=== PATIENT | female | born 1940 | race Caucasian/White ===

== ENCOUNTER 2019-03-09 15:55 | Inpatient (IN) ==
[2019-03-09] MEDS ORDERED: ZOFRAN IV ONE (16:32)
[2019-03-09] MEDS ORDERED: MORPHINE IV ONE (16:32)
[2019-03-09] MEDS ORDERED: NS 1,000 ML IV ONE ×3 (16:32→19:11)
[2019-03-09] MEDS ORDERED: MAXIPIME 2 GM in NS 100 ML IV ONE (16:33)
[2019-03-09 16:52] LABS: BASO# 0.07 X1000 (0.0-0.2); BASO% 0.3 % (0.0-0.8); EOS# 0.08 X1000 (0.0-0.7); EOS% 0.4 % (0.0-10.0); HEMATOCRIT 43.8 % (37.0-47.0); HEMOGLOBIN 14.3 g/dL (12.0-16.0); IMM GRAN# 0.19 X1000 (0.0-0.04); IMM GRAN% 0.9 % (0.0-0.5); LYMPH# 1.96 X1000 (1.2-3.4); LYMPH% 9.2 % (20.5-51.1); MCHC 32.6 g/dL (33-37); MCV 85.9 FL (81-99); MONO# 2.05 X1000 (0.11-0.59); MONO% 9.7 % (1.7-9.3); MPV 9.7 FL (7.4-10.4); NEUT# 16.89 X1000 (1.4-6.5); NEUT% 79.5 % (42.2-75.2); PLT 361 X1000 (130-400); RDW 14.4 % (11.5-14.5); WBC 21.24 X1000 (4.8-10.8)
[2019-03-09 16:59] LABS: ACETONE SERUM NEGATIVE (NEGATIVE)
[2019-03-09 17:03] LABS: LIPASE 9 U/L (13-60)
[2019-03-09 17:09] LABS: ALBUMIN 4.2 g/dL (3.5-5.0); CREATININE 1.3 mg/dL (0.5-0.9); MAGNESIUM 1.9 mg/dL (1.5-2.7); POTASSIUM 4.2 mmol/L (3.5-5.1); TOTAL BILIRUBIN 1.4 mg/dL (0.20-1.00); TOTAL PROTEIN 7.5 g/dL (6.3-8.3)
[2019-03-09] MEDS ORDERED: HUMULIN R IV ONE (17:14)
[2019-03-09 17:18] LABS: INR 1.06; PROTIME 14.3 Seconds (11.0-16.0)
[2019-03-09 17:19] LABS: PTT 26.1 Seconds (22.3-41.8)
[2019-03-09] MEDS ORDERED: NS 500 ML IV ONE (17:30)
--- NOTE | 2019-03-09 17:34 | Diag Imaging Result Doc PS360 ---
EXAM: CHEST-1 VIEW INDICATION: low blood pressure, confused TECHNIQUE: One view COMPARISON: 04/04/2018 FINDINGS: There is suggestion of mild bibasilar atelectasis. The lungs are grossly clear, otherwise. There is no discrete pleural fluid collection or pneumothorax. The cardiomediastinal silhouette and central vasculature are grossly unremarkable. IMPRESSION: Likely mild bibasilar atelectasis. No definite acute chest pathology, otherwise. Electronically signed by Davis Sanches 03/09/2019 5:31 PM
[2019-03-09 17:45] LABS: BILIRUBIN URINE NEGATIVE (NEGATIVE); BLOOD URINE 2+ (NEGATIVE); CLARITY SL. CLOUDY (CLEAR); COLOR YELLOW; KETONE URINE NEGATIVE (NEGATIVE); LEUKOCYTES URINE 2+ (NEGATIVE); NITRITE URINE NEGATIVE (NEGATIVE); PROTEIN URINE 2+(100 mg/dL) mg/dL (NEGATIVE); UROBILINOGEN URINE 4 mg/dL
[2019-03-09 17:52] LABS: URINE RBC TNTC /HPF (<10); URINE WBC TNTC /HPF (<10)
[2019-03-09 17:53] LABS: URINE BACTERIA 4+ /HFP; URINE EPITHELIAL CELLS <10 /HPF (<10); URINE SOURCE CATH
--- NOTE | 2019-03-09 17:55 | Diag Imaging Result Doc PS360 ---
EXAM: CT ABDOMEN/PELVIS W/O CONTRAST INDICATION: abd pain, sepsis, contrast allergy TECHNIQUE: This exam was performed using automated exposure control, adjustment of mA or kV according to patient size, and/or use of iterative reconstruction technique. COMPARISON: None. FINDINGS: There is minimal subsegmental atelectasis at the lung bases. There has been a prior cholecystectomy. The liver, spleen, pancreas, and adrenal glands are essentially unremarkable as imaged with unenhanced CT. There is a large cyst at the upper pole of the left kidney measuring up to 9.4 x 7.3 cm axially. There are a couple of small cysts associated with the right kidney. There is extensive diverticulosis coli. There is mild inflammatory fat stranding that is associated with the distal ascending colon and also the lower pole of the right kidney. The exact source of this stranding is unclear. There are several right-sided diverticula in the region but there is no obvious focal colonic wall thickening. Nonetheless, mild diverticulitis should be considered. It could also be related to pyelonephritis. Please correlate clinically. There is no evidence of bowel obstruction. The remainder of the GI tract is essentially unremarkable. No focal bowel wall thickening is identified. The urinary bladder is unremarkable. There has been a prior hysterectomy. No free abdominal gas or free fluid is appreciated. There is no evidence of acute osseous abnormality. IMPRESSION: 1.Diverticulosis coli and mild fat stranding that is closely associated with a segment of the ascending colon as well as the lower pole of the right kidney. The exact source of this stranding is unclear. Consider diverticulitis or perhaps pyelonephritis. Note that no discrete colonic wall thickening can be identified. 2.Other incidental/nonacute findings detailed above. Electronically signed by Davis Sanches 03/09/2019 5:52 PM
[2019-03-09] MEDS ORDERED: FLAGYL 500 MG/NS 500 MG/100 ML IVPB IV ONE (17:57)
--- NOTE | 2019-03-09 18:02 | PROVIDER DOCUMENTATION ---
This chart was entered by Tata Werner Scribe, acting as scribe for Butch Johnson MD. HPI-General Adult - General Chief Complaint: B/P Problems Stated Complaint: LOW BP Time Seen by Provider: 03/09/19 16:10 Source: family () Allergies/Adverse Reactions: Patient Allergies Allergy/AdvReac Type Severity Reaction Status Date / Time Iodinated Contrast Media Allergy HIVES Verified 03/09/19 17:02 [IV Dye] amoxicillin [From Augmentin] AdvReac HIVES Verified 04/04/18 20:07 bacitracin AdvReac RASH Verified 03/09/19 16:48 clavulanic acid AdvReac HIVES Verified 04/04/18 20:07 [From Augmentin] iron AdvReac Unknown Verified 03/09/19 16:48 Sulfa (Sulfonamide AdvReac HIVES Verified 04/04/18 20:06 Antibiotics) Tetanus Vaccines and Toxoid AdvReac Unknown Verified 03/09/19 16:48 Home Medications: Home Medication List Medication Instructions Recorded Confirmed Last Taken Type Alprazolam [Xanax] 1 tab PO DAILY PRN 03/09/19 03/09/19 Unknown History Ascorbic Acid [Vitamin C] 1 tab PO DAILY 03/09/19 03/09/19 Unknown History Atorvastatin Calcium [Lipitor] 1 tab PO DAILY 03/09/19 03/09/19 Unknown History Cetirizine HCl [Zyrtec] 1 tab PO DAILY 03/09/19 03/09/19 Unknown History Clonidine [Catapres] 1 tab PO BID 03/09/19 03/09/19 Unknown History Cyclobenzaprine [Flexeril] 1 tab PO BID 03/09/19 03/09/19 Unknown History Donepezil [Aricept] 1 tab PO DAILY 03/09/19 03/09/19 Unknown History Duloxetine [Cymbalta] 1 tab PO BID 03/09/19 03/09/19 Unknown History Esomeprazole [Nexium] 1 tab PO BID 03/09/19 03/09/19 Unknown History Hydrochlorothiazide 1 tab PO DAILY 03/09/19 03/09/19 Unknown History Ibuprofen [Motrin] 1 tab PO Q6-8H PRN PRN 03/09/19 03/09/19 Unknown History Insulin Glargine,Hum.rec.anlog 10 units SQ HS 03/09/19 03/09/19 Unknown History [Lantus Solostar] Levothyroxine [Synthroid] 1 tab PO DAILY 03/09/19 03/09/19 Unknown History Polyethylene Glycol 3350 [Miralax] 1 packet PO DAILY 03/09/19 03/09/19 Unknown History Potassium Chloride 1 tab PO TID 03/09/19 03/09/19 Unknown History Vitamin E 1 tab PO DAILY 03/09/19 03/09/19 Unknown History - History of Present Illness -Gen Adult Nature of Presenting Problems: Patient is a 78 year old female who presents with for multiple complaints. states patient has symptoms of loss of appetite, fatigue, weight loss, increase in confusion and incontinence of urine and bowel. History of dementia. Location of Pain/Injury: reports: none Quality of Pain: reports: none Severity: reports: mild Onset/Duration: reports: unsure Timing: reports: still present Associated Symptoms: reports: fatigue, genitourinary problems (incontinence), loss of appetite, other (weight loss, increase in confusion, and bowel incontinence) Similar Symptoms Previously?: Yes Recently seen or treated by another doctor?: Yes Review of Systems - Adult - REVIEW OF SYSTEMS - ADULT ROS:: ROS per family () Constitutional: reports: see HPI, fatique, weight loss. denies: chills, fever Eyes: reports: no symptoms reported Ears, Nose, Mouth & Throat: reports: no symptoms reported Cardiovascular: reports: no symptoms reported Respiratory: reports: no symptoms reported Gastrointestinal: reports: see HPI, poor appetite, other (bowel incontinence). denies: diarrhea, nausea, vomiting Genitourinary: reports: see HPI, incontinence. denies: dysuria, hematuria Musculoskeletal: reports: no symptoms reported Integumentary: reports: no symptoms reported Neurological: reports: see HPI, other (increase in confusion). denies: dizziness/vertigo, headache/migraines Psychiatric: reports: no symptoms reported Endocrine: reports: no symptoms reported Hematologic/Lymphatic: reports: no symptoms reported Allergic/Immunologic: reports: no symptoms reported All Other Systems: Reviewed and Negative Past History - Adult - PAST MEDICAL HISTORY-ADULT Review of Records: reports: Old Records Reviewed, Social history reviewed & non- contributory. Major Childhood Illnesses: reports: denies history Cardiovascular: reports: HTN Respiratory: reports: denies history Gastrointestinal: reports: denies history Obstetrical/Gynecological: reports: denies history Genitourinary: reports: denies history Musculoskeletal: reports: denies history Neurological: reports: dementia Psychiatric: reports: denies history Endocrine/Immune: reports: Diabetes Other Conditions: reports: denies history - PRIOR SURGERIES/PROCEDURES Surgical/Procedure History: reports: cholecystectomy, hysterectomy, tonsillectomy - IMMUNIZATION STATUS Childhood Immunizations: See Nurse Assessment Flu Vaccine: See Nurse Assessment - FAMILY HISTORY Family History: reviewed, not pertinent - SOCIAL HISTORY Smoking: denies Substance Use: denies Physical Exam-General - PHYSICAL EXAM-ADULT Initial Vital Signs Reviewed: Yes - CONSTITUTIONAL General Appearance: alert, no apparent distress, other (confused). negative: lethargic - HEAD, EARS, NOSE, MOUTH & THROAT HENMT: normocephalic/atraumatic, other (dry mucous membranes). negative: angioedema - RESPIRATORY Respiratory: chest non-tender, lungs clear, normal breath sounds, increased rate . negative: crackles, rales - CARDIOVASCULAR Cardiovascular: normal peripheral pulses, tachycardia. negative: systolic murmur - GASTROINTESTINAL (ABDOMEN) Abdominal Exam: normal bowel sounds, soft, tenderness (diffuse). negative: guarding, rebound - MUSCULOSKELETAL Extremity: non-tender, normal inspection. negative: deformity, erythema - SKIN Integumentary: diaphoresis, pallor, other (decreased skin turgor). negative: ecchymosis, jaundice - NEUROLOGIC Neurologic: other (confused). negative: aphasia, facial droop - PSYCHIATRIC Psych/Mental Status: other (confused). negative: anxious, paranoid Progress - PLAN OF CARE/RESULTS Progress/Plan/Lab Results: Vital Signs - 8 hr 03/09/19 15:56 03/09/19 16:07 Temperature 97 F L Pulse Rate 117 H Respiratory Rate 18 Blood Pressure 91/62 O2 Sat by Pulse Oximetry 94 L 96 Orders Category Date Time Status CBC WITH DIFF [HEME] Stat Lab 03/09/19 16:06 Ordered COMPREHENSIVE METABOLIC PANEL [CHEM] Stat Lab 03/09/19 16:[address] W/POSS RFLX CULT [URINALYSIS] Stat Lab 03/09/19 16:06 Uncollected Result Diagrams: 03/09/19 16:33 03/09/19 16:33 - REASSESSMENT Reassessment #1 Time Reassessed: 18:12 Status: improving (Given 30ml/kg NS, IV maxipime and flagyl for GI cause of sepsis with PCN allergy, much improved) - EKG 1 Time of EKG reading by physician:: 16:35 EKG Read and Signed by:: Butch Johnson EKG Interpretation (*Must complete 3 of following elements*): Abnormal Rate: 97 Rhythm: normal sinus rhythm [place]: normal [place] Interval: normal Comments: nonspecific ST abnormality. - XRAY 1 XRAY Study: Chest Impression: Abnormal, See EMR Report (Signed EXAM: CHEST-1 VIEW INDICATION: low blood pressure, confused TECHNIQUE: One view COMPARISON: 04/04/2018 FINDINGS: There is suggestion of mild bibasilar atelectasis. The l ungs are grossly clear, otherwise. There is no discrete pleural fluid collection or pneumothorax. The cardiomediastinal silhouette and central vasculature are grossly unremarkable. IMPRESSION: Likely mild bibasilar atelectasis. No definite acute chest pathology, otherwise. Electronically signed by Davis Sanches 03/09/2019 5:31 PM 03/09/19 1731 Interpreting Physician: Davis Sanches MD Dictated Date/Time: 03/09/19 1730 cc: Butch Johnson MD; Waldemar Rivers MD) - CT/MRI 1 CT Study: Abdomen Impression: Abnormal, See EMR Report (EXAM: CT ABDOMEN/PELVIS W/O CONTRAST INDICATION: abd pain, sepsis, contrast allergy TECHNIQUE: This exam was performed using automated exposure control, adjustment of mA or kV according to patient size, and/or use of iterative reconstruction technique. COMPARISON: None. FINDINGS: There is minimal subsegmental atelectasis at the lung bases. There has been a prior cholecystectomy. The liver, spleen, pancreas, and adrenal glands are essentially unremarkable as imaged with unenhanced CT. There is a large cyst at the upper pole of the left kidney measuring up to 9.4 x 7.3 cm axially. There are a couple of small cysts associated with the right kidney. There is extensive diverticulosis coli. There is mild inflammatory fat stranding that is associated with the distal ascending colon and also the lower pole of the right kidney. The exact source of this stranding is unclear. There are several right-sided diverticula in the region but there is no obvious focal col onic wall thickening. Nonetheless, mild diverticulitis should be considered. It could also be related to pyelonephritis. Please correlate clinically. There is no evidence of bowel obstruction. The remainder of the GI tract is essentially unremarkable. No focal bowel wall thickening is identified. The urinary bladder is unremarkable. There has been a prior hysterectomy. No free abdominal gas or free fluid is appreciated. There is no evidence of acute osseous abnormality. IMPRESSION: 1.Diverticulosis coli and mild fat stranding that is closely associated with a segment of the ascending colon as well as the lower pole of the right kidney. The exact source of this stranding is unclear. Consider diverticulitis or perhaps pyelonephritis. Note that no discrete colonic wall thickening can be identified. 2.Other incidental/nonacute findings detailed above. Electronically signed by Davis Sanches 03/09/2019 5:52 PM 03/09/19 1752 Interpreting Physician: Davis Sanches MD Dictated Date/Time: 03/09/19 1746 cc: Butch Johnson MD; Waldemar Rivers MD) - CONSULTS/PCP/HOSPITALIST Notification #1 *Consult/PCP/Hospitalist*: freedom Martinez paged at [phone] Time Discussed: 18:12 Reason/Comments: will admit to ICU Consult Disposition: Admit Departure - Departure Date of Disposition Decision: 03/09/19 Time of Disposition Decision: 18:00 DIAGNOSIS: Diverticulitis large intestine w/o perforation or abscess w/o bleeding Sepsis Qualifiers: Sepsis type: sepsis due to unspecified organism Sepsis acute organ dysfunction status: with acute organ dysfunction Severe sepsis acute organ dysfunction type: unspecified Severe sepsis shock status: without septic shock Qualified Code(s): A41.9 - Sepsis, unspecified organism; R65.20 - Severe sepsis without septic shock UTI (urinary tract infection) Qualifiers: Urinary tract infection type: acute pyelonephritis Qualified Code(s): N10 - Acute pyelonephritis Disposition: ADMITTED INPATIENT 09 Certified Medical Emergency: Emergent Condition: Stable Referrals and Follow-Ups: Waldemar Rivers MD [Primary Care Provider] - - Critical Care Note This patient required my direct & personal management of CC.: Yes Total Time (mins): 45 Critical Care Statement: This patient required my direct personal management to treat or rule out processes, the absence of which, could potentiallly result in sudden, clinically significant life or limb threatening deterioration. Attestation - Physician/ MIGUEL Attestation Patient care was provided by Advanced Practice Provider:: No The physician spent face to face time with patient:: Yes Advanced Practice Provider documentation review:: Supervising physician onsite and consulted in the evaluation and care of this patient. The physician did have a face to face encounter with the patient. Sepsis: Tissue Perfusion Assmt - Physical Exam Assessment Date: 03/09/19 Time Assessment Initialized: 17:53 Vital Signs: Last Vital Signs Temp 97 F L 03/09/19 15:56 Pulse 100 H 03/09/19 17:38 Resp 27 H 03/09/19 17:38 BP 98/59 03/09/19 17:38 Pulse Ox 96 03/09/19 17:38 Height 5 ft 8 in Weight 81.193 kg 03/09/19 17:53 HR 89, BP 109/65, RR 12. Skin is warm/dry with good turgor. Good capillary refill. States is feeling better, and notes less confusion. Lungs are CTA Bilaterally and Heart is RRR without M/G/R Lung Sounds:: lungs clear Heart Sounds:: Regular Capillary Refill Time: Less Than 2 Seconds Peripheral Pulse Evaluation:: radial (R): 2+, radial (L): 2+ Skin Exam:: pink, turgor good - Impression Impression:: Tissue Perfusion Adequate - Plan Plan:: No Change (Awaiting CT scan, will admit for likely GI cause of sepsis. Lactate will be redrawn in an hour or two. First one elevated at 2.6.) This chart was documented by the indicated scribe, (Tata Werner, Phani) and accurately reflects the services I performed and decisions made by me, Butch Johnson MD, as attested by the provider's signature.
[2019-03-09 18:19] LABS: BE -4.7 mmoll (-3.0-3.0); BLOOD TYPE ARTERIAL; HCO3-(ACT) 21.1 mmoll (20.0-26.0); METHB 1.3 % (0.0-1.5); O2(CT) 14.1 mL/dL (15.0-23.0); PCO2(98.6) 37 mmHg (35-45); PO2(98.6) 58 mmHg (60-100); SAMPLE BLOOD; SAO2 92.3 % (95.0-100.0); THB 11.3 g/dL (11.5-17.4); pH(98.6) 7.35 (7.35-7.45)
[2019-03-09 18:48] LABS: ALLEN TEST YES; MODALITY ROOM AIR; O2HB 88.5 % (95.0-99.0)
[2019-03-09] MEDS ORDERED: ZOFRAN IV PRN (19:11)
[2019-03-09] MEDS ORDERED: XANAX PO PRN (19:11)
[2019-03-09] MEDS: CYMBALTA PO SCH (20:31)
[2019-03-09] MEDS: HUMULIN R (PARKWAY) SUBQ SCH (20:40)
[2019-03-09 21:30] LABS: BILIRUBIN URINE NEGATIVE (NEGATIVE); BLOOD URINE 2+ (NEGATIVE); CLARITY SL. CLOUDY (CLEAR); COLOR YELLOW; KETONE URINE NEGATIVE (NEGATIVE); LEUKOCYTES URINE 2+ (NEGATIVE); NITRITE URINE POSITIVE (NEGATIVE); PH URINE 6.5; PROTEIN URINE TRACE mg/dL (NEGATIVE); UROBILINOGEN URINE NORMAL
[2019-03-09 21:36] LABS: URINE WBC TNTC /HPF (<10)
[2019-03-09 21:37] LABS: URINE BACTERIA 2+ /HFP; URINE EPITHELIAL CELLS >10 /HPF (<10)
[2019-03-09] MEDS: STERILE WATER INJ. INJ PRN (21:47)
[2019-03-09] MEDS: GEODON IM PRN (21:47)
--- NOTE | 2019-03-09 21:49 | EKG Report ---
Test Performed on : 03/09/2019 4:35:15 PM Test Reason : low bp Blood Pressure : / mmHG Vent. Rate : 097 BPM Atrial Rate : 097 BPM P-R Int : 146 ms QRS Dur : 086 ms QT Int : 356 ms P-R-T Axes : 057 007 072 degrees QTc Int : 452 ms Normal sinus rhythm. Nonspecific ST abnormality Abnormal ECG No previous ECGs available Unconfirmed Result
[2019-03-09 23:29] LABS: AGAP 13; ALBUMIN 2.9 g/dL (3.5-5.0); ALKALINE PHOSPHATASE 137 U/L (32-104); BUN 19 mg/dL (8-22); CHLORIDE 99 mmol/L (98-107); COSMO 276; CREATININE 0.9 mg/dL (0.5-0.9); ESTIMATED GFR > 60; GLUCOSE 223 mg/dL (70-104); GOT 26 U/L (10-30); GPT 20 U/L (10-36); POTASSIUM 3.5 mmol/L (3.5-5.1); SODIUM 133 mmol/L (136-145); TCO2 21 mmol/L (25-35); TOTAL PROTEIN 5.8 g/dL (6.3-8.3)
[2019-03-09 23:37] LABS: URINE SOURCE CATH
[2019-03-09] MEDS: FLAGYL 500 MG/NS 500 MG/100 ML IVPB IV SCH (23:43)
[2019-03-10] MEDS: GEODON IM PRN (03:11)
[2019-03-10] MEDS: STERILE WATER INJ. INJ PRN (03:12)
[2019-03-10] MEDS: MAXIPIME 2 GM in NS 100 ML IV SCH ×2 (04:05→16:11)
[2019-03-10 04:54] LABS: BASO# 0.04 X1000 (0.0-0.2); BASO% 0.2 % (0.0-0.8); EOS# 0.04 X1000 (0.0-0.7); EOS% 0.2 % (0.0-10.0); HEMOGLOBIN 11.7 g/dL (12.0-16.0); IMM GRAN# 0.08 X1000 (0.0-0.04); IMM GRAN% 0.4 % (0.0-0.5); LYMPH# 1.61 X1000 (1.2-3.4); LYMPH% 8.7 % (20.5-51.1); MCH 27.5 PG (27-31); MCHC 31.6 g/dL (33-37); MCV 86.9 FL (81-99); MONO# 1.81 X1000 (0.11-0.59); MONO% 9.8 % (1.7-9.3); MPV 9.4 FL (7.4-10.4); NEUT# 14.85 X1000 (1.4-6.5); NEUT% 80.7 % (42.2-75.2); PLT 254 X1000 (130-400); RBC 4.26 XMIL (4.2-5.4); RDW 14.4 % (11.5-14.5); WBC 18.43 X1000 (4.8-10.8)
[2019-03-10] MEDS: LOVENOX SUBQ SCH (05:04)
[2019-03-10] MEDS: FLAGYL 500 MG/NS 500 MG/100 ML IVPB IV SCH ×4 (05:04→23:29)
[2019-03-10] MEDS: HUMULIN R (PARKWAY) SUBQ SCH ×4 (06:54→22:32)
[2019-03-10] MEDS: PRILOSEC PO SCH (06:54)
[2019-03-10] MEDS: CYMBALTA PO SCH ×2 (09:20→22:18)
[2019-03-10] MEDS: ARICEPT PO SCH (14:46)
[2019-03-10] MEDS: LUMIGAN 0.01% OPH SOLUTION BOTH EYES SCH (22:19)
[2019-03-10] MEDS: NEXIUM PO SCH (22:19)
[2019-03-10] MEDS: COMBIGAN OPHTH SOLN BOTH EYES SCH (22:19)
[2019-03-10] MEDS ORDERED: NAMENDA PO ONE (22:19)
[2019-03-10] MEDS: LIPITOR PO SCH (22:19)
[2019-03-10] MEDS: LANTUS INSULIN SUBQ SCH (22:21)
--- NOTE | 2019-03-10 22:45 | PROGRESS NOTE ---
DATE: 03/10/2019 SUBJECTIVE: No major complaints. Still somewhat confused. No abdominal complaints. OBJECTIVE: Blood pressure was 130/73, heart rate 100, respiratory rate stable, respiratory rate 91, temperature 98.2 degrees. Cardiovascular: Regular rate and rhythm. Pulmonary: Bilateral breath sounds, clear to auscultation. GI was soft, nontender. Bowel sounds are positive. She is alert, oriented to name only. LABORATORY DATA: White count is 18, hemoglobin 11, hematocrit 37, platelets 254,000. Chemistries looked okay. Blood sugars 223, 193. ASSESSMENT AND PLAN: Problem list: 1. Gram-negative joey urinary tract infection with sepsis. Continue blood pressure medications, empiric antibiotics and follow. 2. Diverticulitis. We will continue treatment including antibiotics, clear liquid diet and follow. 3. Diabetes. We will continue to monitor blood sugars, maintain regular medications and adjust accordingly. Continue sliding scale insulin. We will check an A1c. 4. Dementia. Appears to be controlled. Last night she required Geodon. We will add Namenda to her medical regimen and follow. cc: David Martinez MD [facility]
--- NOTE | 2019-03-10 22:47 | HISTORY AND PHYSICAL ---
CHIEF COMPLAINT: Confusion. HISTORY OF PRESENT ILLNESS: This is a 78-year-old white female with his history of dementia. PAST MEDICAL HISTORY: 1. History of UTIs previously. 2. Anxiety disorder. 3. GERD. 4. Diabetes. 5. Hypothyroidism. PAST SURGICAL HISTORY: Denies. FAMILY HISTORY: Reviewed, noncontributory. SOCIAL HISTORY: No tobacco or ethanol use. She does live at home. ALLERGIES: IV dye, amoxicillin, bacitracin, clavulanic acid, iron, sulfa, tetanus toxoid. REVIEW OF SYSTEMS: Otherwise negative. It is a 10-point review of systems. MEDICATIONS: She currently takes Lumigan both eyes, Aricept 10 daily, Catapres 0.2 b.i.d., ranitidine both eyes daily, Cymbalta 60 b.i.d., Flexeril 10 daily, hydrochlorothiazide 25 daily, glargine 10 at bedtime, Lipitor 40 daily, MiraLAX 17 daily, ibuprofen p.r.n., Nexium 40 daily, Klor-Con 10 t.i.d., Synthroid 125 daily, ascorbic acid 1 g daily, vitamin E 400 units daily, Xanax 1 daily, Zyrtec 1 daily. PHYSICAL EXAMINATION: VITAL SIGNS: Blood pressure was 119/73, heart rate of 98, respiratory rate of 19, temperature 97.8 degrees. GENERAL: A well-developed female, no acute distress. HEENT: Normocephalic, atraumatic. Eyes: Pupils equal, round, reactive to light. Sclerae are anicteric. NECK: Supple. CARDIOVASCULAR: Regular rate and rhythm. No murmurs, gallops, or rubs. PULMONARY: Bilateral breath sounds clear to auscultation. GASTROINTESTINAL: Soft, nontender, nondistended. Bowel sounds are positive. EXTREMITIES: Have no clubbing or cyanosis. LYMPHATIC: No peripheral edema. NEUROLOGICAL: Nonfocal. MUSCULOSKELETAL: Nonfocal. LABORATORY DATA: White count was 21,000, hemoglobin and hematocrit 14 and 43, platelets 361,000. Sodium 133, blood sugar 223, T bilirubin 0.1. UA showed too numerous to count white blood cells, red blood cells. Chest x-ray showed no airspace disease except some left lower lobe basilar atelectasis. CT showed diverticulosis with possible diverticulitis and cystitis. PROBLEM LIST: 1. Sepsis with cystitis and possible diverticulitis. We will continue broad-spectrum antibiotics and follow closely. 2. Diabetes. Continue to monitor blood sugars with sliding scale insulin and follow. 3. Dementia. Appears to be relatively well controlled. We may have to had atypical antipsychotics and follow closely. DISPOSITION: Pending her clinical status. We will continue to monitor closely. cc: David Martinez MD
[2019-03-11] MEDS: MAXIPIME 2 GM in NS 100 ML IV SCH (04:23)
[2019-03-11] MEDS: FLAGYL 500 MG/NS 500 MG/100 ML IVPB IV SCH ×3 (05:13→17:20)
[2019-03-11] MEDS: PRILOSEC PO SCH ×2 (05:15→06:09)
[2019-03-11] MEDS: LOVENOX SUBQ SCH (05:15)
[2019-03-11] MEDS: SYNTHROID PO SCH ×3 (05:16→06:18)
[2019-03-11] MEDS: NEXIUM PO SCH ×2 (06:08→21:48)
[2019-03-11] MEDS: HUMULIN R (PARKWAY) SUBQ SCH ×4 (06:22→21:45)
[2019-03-11] MEDS ORDERED: SYNTHROID PO SCH (09:00)
[2019-03-11] MEDS: ARICEPT PO SCH (10:13)
[2019-03-11] MEDS: MIRALAX PO SCH (10:14)
[2019-03-11] MEDS: CYMBALTA PO SCH ×2 (10:14→21:46)
[2019-03-11] MEDS: COMBIGAN OPHTH SOLN BOTH EYES SCH ×2 (10:14→21:46)
[2019-03-11] MEDS: NAMENDA PO SCH ×2 (10:14→21:47)
[2019-03-11] MEDS: ZYRTEC PO SCH (10:15)
[2019-03-11] MEDS: VITAMIN E PO SCH (10:15)
[2019-03-11] MEDS: GEODON IM PRN (12:57)
[2019-03-11] MEDS: STERILE WATER INJ. INJ PRN ×2 (12:59→17:02)
[2019-03-11] MEDS ORDERED: ZYPREXA IM ONE (16:29)
--- NOTE | 2019-03-11 16:56 | PROGRESS NOTE ---
DATE: 03/11/2019 SUBJECTIVE: Patient has no major complaints. OBJECTIVE: Vital signs: Blood pressure is 153/76, heart rate of 120, respiratory rate 14, temperature 98.2 degrees, 97% on 3 L. Cardiovascular: Regular rate and rhythm. Pulmonary: Bilateral breath sounds. Clear to auscultation. GI: Soft, nontender, nondistended. Bowel sounds are positive. LABORATORY DATA: She refused labs today. She is refusing all treatment today. PROBLEM LIST: 1. Escherichia coli urinary tract infection with sepsis. She has improved. We will switch her to Rocephin. 2. Diverticulitis. She is on Rocephin and Flagyl. We will advance her diet and follow. 3. Type 2 diabetes is overall stable. 4. Dementia. She has severe issues currently. I am not sure why she is so upset unless it may just be related to delirium associated with her UTI with underlying dementia, but per family, she has been destabilizing for the last 2 months. If she is not much improved I am going to start Zyprexa. We will anticipate that she will need a [facility] consult. I think her UTI is under control. She has not had any fevers. Her white count is coming down. So we will continue to monitor closely. cc: David Martinez MD
[2019-03-11] MEDS: ROCEPHIN 1 GM in NS 50 ML IV SCH ×2 (17:19→18:51)
[2019-03-11] MEDS: ATIVAN IV PRN ×2 (18:14→22:18)
[2019-03-11] MEDS ORDERED: SEROQUEL PO SCH (21:00)
[2019-03-11] MEDS ORDERED: STERILE WATER INJ. INJ PRN (21:30)
[2019-03-11] MEDS: LANTUS INSULIN SUBQ SCH (21:46)
[2019-03-11] MEDS: LUMIGAN 0.01% OPH SOLUTION BOTH EYES SCH (21:46)
[2019-03-11] MEDS: LIPITOR PO SCH (21:46)
[2019-03-11] MEDS: ZYPREXA IM SCH (21:48)
[2019-03-11] MEDS: NS 1,000 ML IV SCH (22:17)
[2019-03-12] MEDS: FLAGYL 500 MG/NS 500 MG/100 ML IVPB IV SCH ×3 (00:08→17:57)
[2019-03-12] MEDS: ATIVAN IV PRN ×2 (02:26→06:27)
[2019-03-12] MEDS: LOPRESSOR IV SCH ×4 (03:53→21:56)
[2019-03-12] MEDS: HUMULIN R (PARKWAY) SUBQ SCH ×4 (06:15→21:59)
[2019-03-12] MEDS: NEXIUM PO SCH ×2 (06:15→21:57)
[2019-03-12] MEDS: PRILOSEC PO SCH (06:16)
[2019-03-12] MEDS: SYNTHROID PO SCH ×2 (06:16)
[2019-03-12] MEDS: LOVENOX SUBQ SCH (06:27)
[2019-03-12 08:48] LABS: AGAP 16; BUN 9 mg/dL (8-22); CHLORIDE 99 mmol/L (98-107); COSMO 285; CREATININE 0.7 mg/dL (0.5-0.9); ESTIMATED GFR > 60; GLUCOSE 214 mg/dL (70-104); SODIUM 140 mmol/L (136-145); TCO2 25 mmol/L (25-35)
[2019-03-12 08:49] LABS: HEMOGLOBIN A1C 10.3 % (4.8-6.0)
[2019-03-12 09:11] LABS: BASO# 0.06 X1000 (0.0-0.2); BASO% 0.6 % (0.0-0.8); EOS% 1.1 % (0.0-10.0); HEMATOCRIT 42.7 % (37.0-47.0); IMM GRAN# 0.11 X1000 (0.0-0.04); IMM GRAN% 1.2 % (0.0-0.5); LYMPH# 1.51 X1000 (1.2-3.4); LYMPH% 15.9 % (20.5-51.1); MCH 27.7 PG (27-31); MCHC 32.8 g/dL (33-37); MCV 84.4 FL (81-99); MONO# 1.32 X1000 (0.11-0.59); MONO% 13.9 % (1.7-9.3); MPV 9.5 FL (7.4-10.4); NEUT% 67.3 % (42.2-75.2); PLT 350 X1000 (130-400); RBC 5.06 XMIL (4.2-5.4); RDW 14.1 % (11.5-14.5)
[2019-03-12] MEDS: NS 1,000 ML IV SCH ×2 (09:23→22:32)
[2019-03-12] MEDS: POTASSIUM CHLORIDE 20 MEQ/SWI 20 MEQ/100 ML IVPB IV SCH ×2 (11:34→14:18)
[2019-03-12] MEDS: COMBIGAN OPHTH SOLN BOTH EYES SCH ×2 (12:50→22:31)
[2019-03-12] MEDS: TYLENOL PO PRN (12:51)
[2019-03-12] MEDS: MIRALAX PO SCH (12:51)
[2019-03-12] MEDS: ARICEPT PO SCH (12:54)
[2019-03-12] MEDS: VITAMIN E PO SCH (12:54)
[2019-03-12] MEDS: CYMBALTA PO SCH ×2 (12:54→21:57)
[2019-03-12] MEDS: NAMENDA PO SCH ×2 (12:55→21:57)
[2019-03-12] MEDS: ZYRTEC PO SCH (12:55)
--- NOTE | 2019-03-12 13:56 | PROGRESS NOTE ---
DATE: 03/12/2019 SUBJECTIVE: Patient has no major complaints. OBJECTIVE: Blood pressure 160/99, heart rate 115, respiratory rate 14, temperature 98.7 degrees, 94% on room air.Cardiovascular: Regular rate and rhythm. Pulmonary: Bilateral breath sounds clear to auscultation. GI: Soft, nontender, nondistended. Bowel sounds are positive. LABORATORY DATA: White count is down to 9, hemoglobin and hematocrit 14 and 42, platelets 350,000. Potassium of 3, blood glucose 182. A1c is 10.3, which suggests poor control. PROBLEM LIST: 1. Escherichia coli urinary tract infection, sepsis and now with bacteremia. Most likely this is the same organism, waiting on sensitivity. She is on Rocephin. Will continue IV antibiotics until she is improved and not bacteremic. 2. Possible diverticulitis. She is on Rocephin and Flagyl. Continue to follow. 3. Type 2 diabetes. Blood sugars are doing okay. She is not taking much in p.o. We will continue to monitor. She is on sliding scale insulin. She is on Lantus. 4. Hypokalemia. Will continue to supplement and follow. 5. Delirium associated with dementia. Discussed that she may need a geriatric psychiatry evaluation if she is not improved, hopefully in the next 1 to 2 days. She is on Zyprexa at this time. cc: David Martinez MD
--- NOTE | 2019-03-12 15:02 | Diag Imaging Result Doc PS360 ---
EXAM: CT HEAD W/O CONTRAST INDICATION: encephalopathy TECHNIQUE: This exam was performed using automated exposure control, adjustment of mA or kV according to patient size, and/or use of iterative reconstruction technique. COMPARISON: 11/14/2014 FINDINGS: There is patchy low attenuation in the periventricular and subcortical white matter that is similar to the previous study suggesting moderate microangiopathy. There is no definite acute infarct given the limited sensitivity of CT versus MRI. There is no discrete intracranial mass, mass effect, or intracranial hemorrhage. The surrounding soft tissues and bony structures are essentially unremarkable. IMPRESSION: Essentially stable chronic appearing white matter changes. No definite acute intracranial pathology. Electronically signed by Davis Sanches 03/12/2019 3:00 PM
[2019-03-12] MEDS: ROCEPHIN 1 GM in NS 50 ML IV SCH (16:31)
[2019-03-12] MEDS: ZYPREXA IM SCH (21:56)
[2019-03-12] MEDS: LUMIGAN 0.01% OPH SOLUTION BOTH EYES SCH (21:57)
[2019-03-12] MEDS: LIPITOR PO SCH (21:57)
[2019-03-12] MEDS: LANTUS INSULIN SUBQ SCH (21:58)
[2019-03-13] MEDS: FLAGYL 500 MG/NS 500 MG/100 ML IVPB IV SCH ×4 (00:30→17:42)
[2019-03-13] MEDS: LOPRESSOR IV SCH ×4 (02:36→21:45)
[2019-03-13] MEDS: PRILOSEC PO SCH (06:24)
[2019-03-13] MEDS: SYNTHROID PO SCH ×2 (06:24)
[2019-03-13] MEDS: LOVENOX SUBQ SCH (06:24)
[2019-03-13] MEDS: NEXIUM PO SCH ×2 (06:24→21:45)
[2019-03-13] MEDS: NS 1,000 ML IV SCH (06:25)
[2019-03-13] MEDS: HUMULIN R (PARKWAY) SUBQ SCH ×3 (06:41→17:42)
[2019-03-13 06:56] LABS: BASO# 0.11 X1000 (0.0-0.2); EOS# 0.36 X1000 (0.0-0.7); EOS% 3.2 % (0.0-10.0); HEMATOCRIT 42.2 % (37.0-47.0); HEMOGLOBIN 13.6 g/dL (12.0-16.0); IMM GRAN# 0.23 X1000 (0.0-0.04); LYMPH# 2.12 X1000 (1.2-3.4); LYMPH% 18.8 % (20.5-51.1); MCH 27.3 PG (27-31); MCHC 32.2 g/dL (33-37); MCV 84.7 FL (81-99); MONO# 1.32 X1000 (0.11-0.59); MONO% 11.7 % (1.7-9.3); MPV 9.1 FL (7.4-10.4); NEUT# 7.11 X1000 (1.4-6.5); NEUT% 63.3 % (42.2-75.2); PLT 372 X1000 (130-400); RBC 4.98 XMIL (4.2-5.4); RDW 14.3 % (11.5-14.5); WBC 11.25 X1000 (4.8-10.8)
[2019-03-13 07:06] LABS: AGAP 10; BUN 8 mg/dL (8-22); CALCIUM 8.6 mg/dL (8.8-10.2); CHLORIDE 99 mmol/L (98-107); COSMO 278; CREATININE 0.6 mg/dL (0.5-0.9); ESTIMATED GFR > 60; GLUCOSE 168 mg/dL (70-104); MAGNESIUM 1.6 mg/dL (1.5-2.7); POTASSIUM 3.2 mmol/L (3.5-5.1); SODIUM 138 mmol/L (136-145); TCO2 29 mmol/L (25-35)
[2019-03-13] MEDS ORDERED: KLOR-CON PO ONE (08:56)
--- NOTE | 2019-03-13 09:19 | PROGRESS NOTE ---
DATE: 03/13/2019 SUBJECTIVE: The patient denies having any acute complaints this morning. OBJECTIVE: Vital Signs: Temperature 98 degrees, pulse 111 per minute, respiratory rate 20 per minute, blood pressure 149/78, pulse oximetry 96% on 2 L of oxygen via nasal cannula. General: Patient is alert and oriented x3. She does not appear to be in any acute distress. Cardiovascular System: First and second heart sounds are audible without murmurs or gallops. Regular tachycardia is present. Respiratory System: Bilateral lung air entry is moderately decreased but there are no rales or rhonchi present on auscultation. Gastrointestinal system: Abdomen is benign. DIAGNOSTIC DATA: CBC shows WBC count of 11.25 with 63.3% neutrophils. Rest of the CBC is nondiagnostic. Basic metabolic panel showed potassium level of 3.2. Rest of the BMP is nondiagnostic. IMPRESSION: 1. Escherichia coli urinary tract infection with sepsis. 2. Possible diverticulitis. 3. Type 2 diabetes mellitus. 4. Hypothyroidism. 5. Dyslipidemia. 6. Depression. 7. Hypokalemia. PLAN: The patient will continue to receive IV ceftriaxone along with Flagyl and IV fluids. We are going to continue with the supportive care and also give her electrolyte replacements. She will need rehab once she is ready to be discharged. cc: Teri Hui MD
[2019-03-13] MEDS: NAMENDA PO SCH ×2 (10:15→21:45)
[2019-03-13] MEDS: ARICEPT PO SCH (10:15)
[2019-03-13] MEDS: CYMBALTA PO SCH ×2 (10:15→21:45)
[2019-03-13] MEDS: ZYRTEC PO SCH (10:15)
[2019-03-13] MEDS: MIRALAX PO SCH (10:16)
[2019-03-13] MEDS: VITAMIN E PO SCH (10:16)
[2019-03-13] MEDS: COMBIGAN OPHTH SOLN BOTH EYES SCH ×2 (10:58→17:56)
[2019-03-13] MEDS: ROCEPHIN 1 GM in NS 50 ML IV SCH (16:20)
[2019-03-13] MEDS: LUMIGAN 0.01% OPH SOLUTION BOTH EYES SCH (17:56)
[2019-03-13] MEDS: LIPITOR PO SCH (21:45)
[2019-03-13] MEDS: ATIVAN IV PRN (22:32)
[2019-03-14] MEDS: COMBIGAN OPHTH SOLN BOTH EYES SCH ×3 (00:33→20:13)
[2019-03-14] MEDS: LANTUS INSULIN SUBQ SCH ×2 (00:34→20:14)
[2019-03-14] MEDS: HUMULIN R (PARKWAY) SUBQ SCH ×5 (00:34→20:14)
[2019-03-14] MEDS: LUMIGAN 0.01% OPH SOLUTION BOTH EYES SCH ×2 (00:34→20:12)
[2019-03-14] MEDS: ZYPREXA IM SCH ×2 (00:35→20:14)
[2019-03-14] MEDS: FLAGYL 500 MG/NS 500 MG/100 ML IVPB IV SCH ×4 (00:43→18:13)
[2019-03-14] MEDS: NS 1,000 ML IV SCH ×3 (00:43→16:23)
[2019-03-14] MEDS: LOPRESSOR IV SCH ×6 (03:12→22:44)
[2019-03-14 06:10] LABS: BASO# 0.12 X1000 (0.0-0.2); BASO% 1.1 % (0.0-0.8); EOS# 0.48 X1000 (0.0-0.7); EOS% 4.4 % (0.0-10.0); HEMATOCRIT 41.3 % (37.0-47.0); HEMOGLOBIN 13.1 g/dL (12.0-16.0); IMM GRAN# 0.39 X1000 (0.0-0.04); IMM GRAN% 3.5 % (0.0-0.5); LYMPH# 2.35 X1000 (1.2-3.4); LYMPH% 21.3 % (20.5-51.1); MCH 27.3 PG (27-31); MCHC 31.7 g/dL (33-37); MCV 86.2 FL (81-99); MONO# 1.08 X1000 (0.11-0.59); MONO% 9.8 % (1.7-9.3); MPV 9.2 FL (7.4-10.4); NEUT# 6.59 X1000 (1.4-6.5); NEUT% 59.9 % (42.2-75.2); PLT 421 X1000 (130-400); RBC 4.79 XMIL (4.2-5.4); RDW 14.4 % (11.5-14.5); WBC 11.01 X1000 (4.8-10.8)
[2019-03-14] MEDS: PRILOSEC PO SCH (06:15)
[2019-03-14] MEDS: SYNTHROID PO SCH ×2 (06:15)
[2019-03-14] MEDS: NEXIUM PO SCH ×2 (06:15→20:13)
[2019-03-14] MEDS: LOVENOX SUBQ SCH (06:15)
[2019-03-14 06:38] LABS: AGAP 12; BUN 7 mg/dL (8-22); CALCIUM 8.8 mg/dL (8.8-10.2); CHLORIDE 103 mmol/L (98-107); COSMO 284; CREATININE 0.6 mg/dL (0.5-0.9); ESTIMATED GFR > 60; GLUCOSE 179 mg/dL (70-104); POTASSIUM 3.6 mmol/L (3.5-5.1); SODIUM 141 mmol/L (136-145); TCO2 27 mmol/L (25-35)
[2019-03-14] MEDS: CYMBALTA PO SCH ×2 (10:45→20:13)
[2019-03-14] MEDS: ARICEPT PO SCH (10:45)
[2019-03-14] MEDS: VITAMIN E PO SCH (10:45)
[2019-03-14] MEDS: MIRALAX PO SCH (10:45)
[2019-03-14] MEDS: NAMENDA PO SCH ×2 (10:45→20:13)
[2019-03-14] MEDS: ZYRTEC PO SCH (10:45)
--- NOTE | 2019-03-14 13:45 | PROGRESS NOTE ---
DATE: 03/14/2019 SUBJECTIVE: Patient denies having any acute complaints and feels better today. OBJECTIVE: Vital Signs: Temperature 98.3 degrees, pulse 104 per minute, respiratory rate 20 per minute, blood pressure 106/95, pulse oximetry 94% on room air. General: Patient is awake and alert. She does not appear to be in any acute distress. Cardiovascular System: First and second heart sounds are audible without any murmurs or gallops. Respiratory System: No respiratory distress noted. Bilateral lung air entry is moderately decreased but there are no rales or rhonchi present on auscultation. Gastrointestinal System: Abdomen is soft and nondistended. Normal bowel sounds are present. Musculoskeletal System: No deformities are present. Muscular strength in all 4 extremities is slightly decreased because of generalized weakness. DIAGNOSTIC DATA: CBC shows WBC count of 11.01. Rest of the CBC is nondiagnostic. Chemistry done this morning shows glucose levels of 179. Rest of the BMP is nondiagnostic. IMPRESSION: 1. Escherichia coli urinary tract infection with sepsis. 2. Possible diverticulitis. 3. Type 2 diabetes mellitus. 4. Hypothyroidism. 5. Dyslipidemia. 6. Depression. PLAN: The patient will continue to receive IV ceftriaxone along with Flagyl and IV fluids. We are going to continue with current supportive care and physical therapy. She will need to be discharged to rehab sometime this week. cc: Teri Hui MD
[2019-03-14] MEDS: TYLENOL PO PRN (14:22)
[2019-03-14] MEDS: ROCEPHIN 1 GM in NS 50 ML IV SCH (16:22)
[2019-03-14] MEDS: LIPITOR PO SCH (20:13)
[2019-03-14] MEDS: ATIVAN IV PRN (22:45)
[2019-03-15] MEDS: NS 1,000 ML IV SCH ×2 (00:42→10:29)
[2019-03-15] MEDS: FLAGYL 500 MG/NS 500 MG/100 ML IVPB IV SCH ×3 (00:42→12:30)
[2019-03-15] MEDS: LOPRESSOR IV SCH ×3 (02:50→16:22)
[2019-03-15] MEDS: PRILOSEC PO SCH ×2 (05:33→06:30)
[2019-03-15] MEDS: SYNTHROID PO SCH ×4 (05:33→06:30)
[2019-03-15] MEDS: LOVENOX SUBQ SCH (05:33)
[2019-03-15] MEDS: NEXIUM PO SCH ×3 (05:34→20:42)
[2019-03-15 06:00] LABS: BE 6.2 mmoll (-3.0-3.0); BLOOD TYPE ARTERIAL; HCO3-(ACT) 29.7 mmoll (20.0-26.0); METHB 1.6 % (0.0-1.5); O2(CT) 18.6 mL/dL (15.0-23.0); O2HB 93.8 % (95.0-99.0); PCO2(98.6) 42 mmHg (35-45); PO2(98.6) 76 mmHg (60-100); SAMPLE BLOOD; SAO2 97.6 % (95.0-100.0); THB 14.1 g/dL (11.5-17.4); pH(98.6) 7.47 (7.35-7.45)
[2019-03-15 06:05] LABS: MODALITY CANNULA
[2019-03-15 06:06] LABS: ALLEN TEST YES
[2019-03-15] MEDS: HUMULIN R (PARKWAY) SUBQ SCH ×4 (06:30→20:56)
[2019-03-15 06:34] LABS: AGAP 12; ALBUMIN 3.3 g/dL (3.5-5.0); ALKALINE PHOSPHATASE 138 U/L (32-104); BUN 6 mg/dL (8-22); CALCIUM 8.9 mg/dL (8.8-10.2); CHLORIDE 100 mmol/L (98-107); COSMO 277; CREATININE 0.5 mg/dL (0.5-0.9); ESTIMATED GFR > 60; GLUCOSE 200 mg/dL (70-104); GOT 24 U/L (10-30); GPT 19 U/L (10-36); MAGNESIUM 1.6 mg/dL (1.5-2.7); POTASSIUM 3.6 mmol/L (3.5-5.1); SODIUM 137 mmol/L (136-145); TCO2 25 mmol/L (25-35); TOTAL PROTEIN 6.5 g/dL (6.3-8.3)
[2019-03-15 06:57] LABS: BASO# 0.28 X1000 (0.0-0.2); BASO% 2.4 % (0.0-0.8); EOS# 0.74 X1000 (0.0-0.7); EOS% 6.4 % (0.0-10.0); HEMATOCRIT 42.4 % (37.0-47.0); HEMOGLOBIN 13.4 g/dL (12.0-16.0); IMM GRAN# 0.39 X1000 (0.0-0.04); IMM GRAN% 3.4 % (0.0-0.5); LYMPH# 2.18 X1000 (1.2-3.4); LYMPH% 18.8 % (20.5-51.1); MCH 27.3 PG (27-31); MCHC 31.6 g/dL (33-37); MCV 86.4 FL (81-99); MONO# 1.05 X1000 (0.11-0.59); MONO% 9.1 % (1.7-9.3); MPV 9.9 FL (7.4-10.4); NEUT# 6.96 X1000 (1.4-6.5); NEUT% 59.9 % (42.2-75.2); PLT 400 X1000 (130-400); RBC 4.91 XMIL (4.2-5.4); RDW 14.5 % (11.5-14.5)
[2019-03-15] MEDS: ARICEPT PO SCH (09:00)
[2019-03-15] MEDS: NAMENDA PO SCH ×2 (10:27→20:42)
[2019-03-15] MEDS: VITAMIN E PO SCH (10:27)
[2019-03-15] MEDS: CYMBALTA PO SCH ×2 (10:27→20:42)
[2019-03-15] MEDS: MIRALAX PO SCH (10:28)
[2019-03-15] MEDS: COMBIGAN OPHTH SOLN BOTH EYES SCH ×2 (10:28→20:43)
[2019-03-15] MEDS: ZYRTEC PO SCH (10:29)
[2019-03-15] MEDS: ROCEPHIN 1 GM in NS 50 ML IV SCH (16:24)
--- NOTE | 2019-03-15 17:16 | PROGRESS NOTE ---
DATE: 03/15/2019 SUBJECTIVE: The patient looks very much better than when I saw her last, much more just back to baseline. OBJECTIVE: Vital signs: Blood pressure is 146/92, heart rate 89, respiratory rate 18, temperature 98.3 degrees, 97% on 3 L. Cardiovascular: Regular rate and rhythm. Pulmonary: Bilateral breath sounds clear to auscultation. GI: Soft, nontender, nondistended. Bowel sounds are positive. LABORATORY DATA: White count is 11, hemoglobin and hematocrit 13 and 42, platelets 400,000. PH 7.47, pCO2 42, PaO2 76. PROBLEM LIST: 1. Escherichia coli urinary tract infection with sepsis and bacteremia. Her repeat blood cultures are negative. I think we could probably treat her with just oral antibiotics. I am a little concerned about giving her Levaquin because she is so confused and prone to confusion. So we will continue ceftriaxone while she is here. She has been on it for 5 days. I think after another 2 days we could switch her to oral for another week, possibly Keflex 500 t.i.d. or at the discretion of the oncoming physician. 2. Diverticulitis. She is on Rocephin. I will switch her Flagyl to p.o. She seems to be doing better and she is having some issues with discomfort, but overall she seems to be doing okay. I anticipate discharge to rehab soon. I have not heard anything officially about bed availability, but should happen soon. 3. Dementia. Appears to be well controlled on her current medications. She is on Zyprexa which I will change to at night once a day and follow. But other than that, she seems to be doing better. I would maintain her on something when she leaves the hospital because I think she will end up needing something in that vein. We will continue to follow closely. Again, anticipate rehab discharge soon. cc: David Martinez MD
[2019-03-15] MEDS: FLAGYL PO SCH (20:42)
[2019-03-15] MEDS: LIPITOR PO SCH (20:42)
[2019-03-15] MEDS: LUMIGAN 0.01% OPH SOLUTION BOTH EYES SCH (20:42)
[2019-03-15] MEDS: ATIVAN IV PRN (20:42)
[2019-03-15] MEDS: ZYPREXA IM SCH (20:53)
[2019-03-15] MEDS: LANTUS INSULIN SUBQ SCH (20:54)
[2019-03-15] MEDS ORDERED: ZYPREXA PO SCH (21:00)
[2019-03-16] MEDS: LOVENOX SUBQ SCH (06:20)
[2019-03-16] MEDS: PRILOSEC PO SCH (06:20)
[2019-03-16] MEDS: NEXIUM PO SCH (06:21)
[2019-03-16] MEDS: SYNTHROID PO SCH ×2 (06:21)
[2019-03-16] MEDS: FLAGYL PO SCH (06:21)
[2019-03-16] MEDS: HUMULIN R (PARKWAY) SUBQ SCH ×2 (06:23→11:26)
[2019-03-16] MEDS: MIRALAX PO SCH (09:43)
[2019-03-16] MEDS: ZYRTEC PO SCH (09:43)
[2019-03-16] MEDS: VITAMIN E PO SCH (09:43)
[2019-03-16] MEDS: CYMBALTA PO SCH (09:43)
[2019-03-16] MEDS: NAMENDA PO SCH (09:43)
[2019-03-16] MEDS: COMBIGAN OPHTH SOLN BOTH EYES SCH (09:44)
[2019-03-16] MEDS: ARICEPT PO SCH (09:44)
--- NOTE | 2019-03-16 12:43 | DISCHARGE SUMMARY ---
ADMISSION DATE: 03/09/2019 DISCHARGE DATE: 03/16/2019 DIAGNOSES: 1. Escherichia coli urinary tract infection with sepsis and bacteremia. 2. Diverticulosis with possible diverticulitis. 3. Dementia. 4. Hypokalemia resolved. 5. Hypothyroid. 6. Dyslipidemia. 7. Diabetes mellitus type 2. DIAGNOSTICS: 1. Chest x-ray, likely mild bibasilar atelectasis. No definite acute chest pathology. 2. CT of the abdomen and pelvis on 03/09/2019, diverticulosis coli and mild fat stranding that is closely associated with a segment of the ascending colon, as well as a lower pole of the right kidney. Consider diverticulitis or perhaps pyelonephritis. Note that no colonic wall thickening can be identified. 3. 03/12/2019 CT of the head essentially stable chronic appearing white matter changes. No definite acute intracranial pathology. MICROBIOLOGY: 1. 03/09/2019 blood cultures 1/2 revealed E. Coli ESBL negative. 2. Repeat blood cultures 03/13/2019 with no growth after 48 hours times both cultures. 3. 03/09/2019 urine culture at 5:30 in the evening revealed E. Coli ESBL negative. 4. 03/09/2019 urine culture at 7:30 revealed no growth. HOSPITAL COURSE: Ms. Montgomery presented to the emergency room complaining of loss of appetite, fatigue, weight loss, increasing confusion, and incontinence of urine and urine and bowel. Workup test results as stated above. She remained confused until the . She started to clear, and on the , the family stated that she was back to her normal self. She remained afebrile throughout the hospitalization. Blood sugars stayed in the 140 to 250 range for which she was given her Lantus insulin, and supplemented at times with sliding scale insulin. She did require Zyprexa as well as Geodon. At first hospitalization she required Geodon on the , , and . She has had none since. She was given 1 dose of Zyprexa on the . Today, once again, the family states that the patient is back to her normal state. She has received 8 days of IV Rocephin, and she will be discharged on Keflex 500 t.i.d. for 5 days. We will continue her Flagyl for 5 days. DISCHARGE VITAL SIGNS: Blood pressure is 129/70 with heart rate of 96, respirations 18, and temperature is 97.9 degrees with O2 saturations 95 to 100 percent on 3 L nasal cannula. DISCHARGE PHYSICAL EXAMINATION: Cardiovascular: Regular rate and rhythm. S1 and S2 appreciated. She has no lower extremity edema. Calves are nontender. Peripheral pulses palpable x4 extremities. Pulmonary: Breath sounds are clear with no increased work of breathing noted. Chest rises and falls symmetric with respiration. Chest wall is nontender to palpation. Gastrointestinal: Abdomen is soft, nontender, and nondistended with bowel sounds in all 4 quadrants. Neurologic: She is alert and oriented x3. Skin: Warm and dry. DISCHARGE MEDICATIONS: 1. Namenda 5 mg p.o. b.i.d. 2. Flagyl 250 mg p.o. q.8 hours x5 days. 3. Zyrtec 10 mg p.o. daily. 4. Vitamin E 400 units p.o. daily. 5. Vitamin C 1000 mg p.o. daily. 6. Levothyroxine 125 mcg p.o. daily. 7. Potassium 10 mEq daily. 8. Nexium 40 mg p.o. b.i.d. 9. MiraLAX 17 g p.o. daily. 10. Lipitor 40 mg p.o. daily. 11. Lantus insulin 10 units at bedtime. 12. Hydrochlorothiazide 25 mg p.o. daily. 13. Flexeril 10 mg p.o. b.i.d. 14. Cymbalta 60 mg p.o. b.i.d. 15. Clonidine 0.2 mg p.o. b.i.d. 16. Aricept 10 mg p.o. daily. 17. Lumigan eye drops, 1 drop both eyes daily. 18. Combigan ophthalmic solution 1 drop both eyes b.i.d. 19. Keflex 500 mg p.o. t.i.d. for 5 days. DISPOSITION: She is being discharged to [facility]. She is being discharged to rehab in stable condition. TIME SPENT: This is a greater than 30 minute discharge. Dictated by BENNIE Mercado for Kermit Wolfe MD cc: BENNIE Mercado MD
[2019-03-16 16:39] VITALS: BP 146/93
--- NOTE | 2019-03-16 21:34 | DISCHARGE SUMMARY ---
ADMISSION DATE: 03/09/2019 DISCHARGE DATE: 03/16/2019 ADDENDUM: Patient seen and examined by myself. Full note dictated and discussed with nurse practitioner. Patient was admitted to the hospital with sepsis secondary to E. coli urinary tract infection and diverticulitis. She was treated, placed on antibiotics. Thankfully, she has improved. On discharge, she is awake, alert. She is in no distress. We are going to discharge her to rehab. Please see full note. cc: Kermit Wolfe MD
== END 2019-03-16 17:45 | DRG 871 ==
LOC: P.ED 15:55 → P.ICU 18:36 → SUATTDRO 18:36 → P.MEDSURG 03-10 18:15
PROVIDERS: ATTEND Family Medicine